=== PATIENT | male | born 1935 | race Caucasian/White ===

== ENCOUNTER 2016-12-09 09:16 | Inpatient (IN) | payer MEDICAID, OTHER ==
[~2016-12-09] VITALS: Ht 193 cm; Wt 95.0 kg
[2016-12-09] MEDS ORDERED: SODIUM CHLORIDE 0.9% 500 ML IVB ONE (10:53)
[2016-12-09 11:51] LABS: Basophils # (auto) 0 uL; Eosinophils # (auto) 0 uL; Eosinophils % (auto) 0.3 % (0.0-7.0); Hematocrit 48.8 % (41.0-53.0); Hemoglobin 16.2 g/dL (13.5-17.5); Lymphocytes % (auto) 11.9 % (10.0-50.0); Mean Corpuscular Hemoglobin 30.6 pg (28.0-32.0); Mean Corpuscular Hgb Conc. 33.2 g/dL (32.0-36.0); Mean Corpuscular Volume 92.3 fL (80.0-100.0); Mean Platelet Volume 11.6 fL (7.4-10.4); Monocytes # (auto) 0.8 uL; Neutrophils # (auto) 6.6 uL; Neutrophils % (auto) 78.8 % (37.0-80.0); Platelet Count (auto) 109 10^3/uL (140-450); Red Cell Distribution Width 14.1 % (11.6-16.0); White Blood Cell 8.4 10^3/uL (4.4-10.8)
[2016-12-09 12:07] LABS: Partial Thromboplastin Time 29.6 sec (22.64-33.71)
[2016-12-09 12:09] LABS: Albumin 3.6 g/dL (3.4-5.0); BUN/Creatinine Ratio 24.8; Bilirubin, Total 1.5 mg/dL (0.2-1.0); Calcium 8.9 mg/dL (8.5-10.1); Magnesium 2.5 mg/dL (1.6-2.6); Potassium 3.6 mmol/L (3.5-5.1); Total Protein 6.4 g/dL (6.4-8.2)
[2016-12-09 12:26] LABS: INR 1.51 (0.9-1.15); Prothrombin Time 16.3 sec (9.37-12.3)
[2016-12-09] MEDS ORDERED: VANCOMYCIN PER PHARMACY 0 MG IV SCH (13:45)
[2016-12-09] MEDS ORDERED: cefTRIAXone 1GM/50ML D5W 50 ML IV ONE (13:45)
[2016-12-09] MEDS ORDERED: TEMAZEPAM 15 MG CAP PO PRN (14:00)
[2016-12-09] MEDS ORDERED: NITROGLYCERIN 0.4 MG SL TAB SL PRN (14:00)
[2016-12-09] MEDS ORDERED: ACETAMINOPHEN 325 MG TAB PO PRN (14:00)
[2016-12-09] MEDS ORDERED: MORPHINE SULF INJ 2 MG/ML SYRINGE 1ML IV PRN (14:00)
[2016-12-09] MEDS ORDERED: HYDROcodone-ACET 5/325MG TAB PO PRN (14:00)
[2016-12-09] MEDS ORDERED: ONDANSETRON HCL 4 MG/2 ML VIAL IV PRN (14:00)
[2016-12-09] MEDS ORDERED: ALENDRONATE SODIUM 10 MG TAB PO SCH (14:08)
[2016-12-09] MEDS: SODIUM CHLORIDE 0.9% 1,000 ML IV SCH (14:15)
[2016-12-09] MEDS ORDERED: CHOLECALCIFEROL (VITD3) 1,000 UNIT TAB PO ONE (14:30)
[2016-12-09] MEDS ORDERED: HCTZ 25 MG TAB PO ONE (14:30)
[2016-12-09] MEDS ORDERED: FAMOTIDINE 20 MG TAB PO ONE (14:30)
[2016-12-09] MEDS ORDERED: METOPROLOL TARTRATE 25 MG TAB PO ONE (14:30)
[2016-12-09] MEDS ORDERED: MEMANTINE HCL 5 MG TAB PO ONE (14:30)
[2016-12-09] MEDS ORDERED: MULTIPLE VITAMIN TAB PO ONE (14:30)
[2016-12-09] MEDS ORDERED: LISINOPRIL 20 MG TAB PO ONE (14:30)
[2016-12-09] MEDS: VANCOMYCIN 1,250 MG in D5W 5% 250 ML IV SCH (15:00)
[2016-12-09 15:18] LABS: Urine Bilirubin Negative (Negative); Urine Blood TRACE /uL (Negative); Urine Color Yellow (Yellow); Urine Glucose Normal (Normal); Urine Mucus FEW (None Seen); Urine Nitrite Negative (Negative); Urine RBC 6 /hpf (0 - 3); Urine Urobilinogen Normal (Negative)
[2016-12-09 16:20] LABS: Urine Ketone 1+ (Negative)
[2016-12-09 16:32] LABS: Lactic Acid w/Reflex 2.3 mmol/L (0.4-2.0)
[2016-12-09 17:00] VITALS: BP 154/100
[2016-12-09] MEDS ORDERED: WARFARIN SODIUM 2.5 MG TAB PO ONE (17:00)
[2016-12-09 17:03] LABS: REFLEX LACTIC ACID YES OR NO YES
[2016-12-09] MEDS ORDERED: METO25TA5 PO (17:11)
[2016-12-09] MEDS ORDERED: LISI-706 PO ×2 (17:11)
[2016-12-09] MEDS ORDERED: ATOR10TA52 PO (17:11)
[2016-12-09] MEDS ORDERED: WARF2.5T PO ×2 (17:11)
[2016-12-09] MEDS ORDERED: ALEN70SO OR (17:11)
[2016-12-09] MEDS ORDERED: CHOL200021 PO (17:11)
[2016-12-09] MEDS ORDERED: MEMA10SO PO (17:11)
[2016-12-09] MEDS: CALCIUM W/VIT D (600MG/400IU) TAB PO SCH (17:41)
[2016-12-09] MEDS ORDERED: cloNIDine HCL 0.1 MG TAB PO PRN (17:45)
[2016-12-09] MEDS ORDERED: PNEUMOCOCCAL VACC POLYS 25 MCG/0.5 ML VIAL IM ONE (18:45)
[2016-12-09 22:00] VITALS: BP 148/81
[2016-12-09] MEDS: ATORVASTATIN 20 MG TAB PO SCH (22:19)
[2016-12-09] MEDS: FAMOTIDINE 20 MG TAB PO SCH (22:20)
[2016-12-09] MEDS: METOPROLOL TARTRATE 25 MG TAB PO SCH (22:20)
[2016-12-10] MEDS: VANCOMYCIN 1,250 MG in D5W 5% 250 ML IV SCH (02:55)
[2016-12-10 05:30] VITALS: BP 139/82
[2016-12-10] MEDS: SODIUM CHLORIDE 0.9% 1,000 ML IV SCH ×2 (06:04→23:07)
[2016-12-10 06:41] LABS: Basophils # (auto) 0 uL; Basophils % (auto) 0.3 % (0.0-2.0); Eosinophils # (auto) 0 uL; Eosinophils % (auto) 0.3 % (0.0-7.0); Hematocrit 45.7 % (41.0-53.0); Hemoglobin 15.1 g/dL (13.5-17.5); Lymphocytes # (auto) 0.9 uL; Lymphocytes % (auto) 9.4 % (10.0-50.0); Mean Corpuscular Hemoglobin 30.1 pg (28.0-32.0); Mean Corpuscular Volume 91.4 fL (80.0-100.0); Mean Platelet Volume 11.4 fL (7.4-10.4); Monocytes # (auto) 0.8 uL; Neutrophils # (auto) 7.4 uL; Platelet Count (auto) 112 10^3/uL (140-450); White Blood Cell 9.1 10^3/uL (4.4-10.8)
[2016-12-10 06:52] LABS: INR 1.51 (0.9-1.15); Partial Thromboplastin Time 34.4 sec (22.64-33.71); Prothrombin Time 16.3 sec (9.37-12.3)
[2016-12-10 06:58] LABS: Calcium 8.4 mg/dL (8.5-10.1); Potassium 3.2 mmol/L (3.5-5.1)
[2016-12-10 07:03] LABS: Albumin 3.2 g/dL (3.4-5.0); BUN/Creatinine Ratio 21.8; Bilirubin, Total 1.5 mg/dL (0.2-1.0); Total Protein 5.9 g/dL (6.4-8.2)
[2016-12-10] MEDS: CALCIUM W/VIT D (600MG/400IU) TAB PO SCH ×2 (07:55→18:32)
[2016-12-10] MEDS: MORPHINE SULF INJ 2 MG/ML SYRINGE 1ML IV PRN (08:11)
[2016-12-10 09:00] VITALS: BP 100/62
[2016-12-10] MEDS: cefTRIAXone 1GM/50ML D5W 50 ML IV SCH (09:31)
[2016-12-10] MEDS: FAMOTIDINE 20 MG TAB PO SCH ×2 (09:35→21:55)
[2016-12-10] MEDS: MULTIPLE VITAMIN TAB PO SCH (09:36)
[2016-12-10] MEDS: MEMANTINE HCL 5 MG TAB PO SCH (09:38)
[2016-12-10] MEDS: CHOLECALCIFEROL (VITD3) 1,000 UNIT TAB PO SCH (09:38)
[2016-12-10] MEDS: LISINOPRIL 20 MG TAB PO SCH (09:39)
[2016-12-10] MEDS: METOPROLOL TARTRATE 25 MG TAB PO SCH ×2 (09:40→21:55)
[2016-12-10] MEDS ORDERED: HCTZ 25 MG TAB PO SCH (10:00)
[2016-12-10 13:00] VITALS: BP 110/64
[2016-12-10] MEDS ORDERED: POTASSIUM CHL 20 Meq TABLET PO ONE (15:30)
[2016-12-10] MEDS ORDERED: WARFARIN SODIUM 10 MG TAB PO ONE (17:00)
[2016-12-10] MEDS: ATORVASTATIN 20 MG TAB PO SCH (21:55)
[2016-12-10 22:00] VITALS: BP 119/69
[2016-12-11] MEDS: MORPHINE SULF INJ 2 MG/ML SYRINGE 1ML IV PRN ×2 (01:20→14:48)
[2016-12-11 01:49] LABS: Basophils # (auto) 0.1 uL; Basophils % (auto) 0.6 % (0.0-2.0); Eosinophils # (auto) 0.1 uL; Eosinophils % (auto) 0.9 % (0.0-7.0); Hematocrit 45.6 % (41.0-53.0); Hemoglobin 15.1 g/dL (13.5-17.5); Lymphocytes # (auto) 1.2 uL; Mean Corpuscular Hemoglobin 29.7 pg (28.0-32.0); Mean Corpuscular Volume 89.8 fL (80.0-100.0); Mean Platelet Volume 10.7 fL (7.4-10.4); Monocytes # (auto) 0.9 uL; Monocytes % (auto) 10.8 % (0.0-12.0); Neutrophils # (auto) 6.3 uL; Neutrophils % (auto) 73.7 % (37.0-80.0); Platelet Count (auto) 101 10^3/uL (140-450); Red Cell Distribution Width 12.7 % (11.6-16.0); White Blood Cell 8.6 10^3/uL (4.4-10.8)
[2016-12-11 02:08] LABS: Partial Thromboplastin Time 36.5 sec (22.64-33.71)
[2016-12-11 02:09] LABS: INR 1.74 (0.9-1.15); Prothrombin Time 18.8 sec (9.37-12.3)
[2016-12-11 03:02] LABS: BUN/Creatinine Ratio 22.3; Calcium 8.3 mg/dL (8.5-10.1); Magnesium 2.2 mg/dL (1.6-2.6); Potassium 3.7 mmol/L (3.5-5.1)
[2016-12-11 05:30] VITALS: BP 123/67
[2016-12-11] MEDS ORDERED: ALENDRONATE SODIUM 10 MG TAB PO SCH (06:00)
[2016-12-11 08:15] VITALS: BP 145/88
[2016-12-11] MEDS: cefTRIAXone 1GM/50ML D5W 50 ML IV SCH (09:56)
[2016-12-11] MEDS: LISINOPRIL 20 MG TAB PO SCH (09:57)
[2016-12-11] MEDS: CHOLECALCIFEROL (VITD3) 1,000 UNIT TAB PO SCH (09:57)
[2016-12-11] MEDS: FAMOTIDINE 20 MG TAB PO SCH ×2 (09:57→21:49)
[2016-12-11] MEDS: MULTIPLE VITAMIN TAB PO SCH (09:57)
[2016-12-11] MEDS: METOPROLOL TARTRATE 25 MG TAB PO SCH ×2 (09:58→21:49)
[2016-12-11] MEDS: MEMANTINE HCL 5 MG TAB PO SCH (09:58)
[2016-12-11] MEDS: CALCIUM W/VIT D (600MG/400IU) TAB PO SCH ×2 (10:02→17:33)
[2016-12-11 12:39] VITALS: BP 128/74
[2016-12-11] MEDS: SODIUM CHLORIDE 0.9% 1,000 ML IV SCH (16:04)
[2016-12-11] MEDS ORDERED: WARFARIN SODIUM 10 MG TAB PO ONE (17:00)
[2016-12-11 17:16] VITALS: BP 157/98
[2016-12-11] MEDS: ATORVASTATIN 20 MG TAB PO SCH (21:48)
[2016-12-11 21:56] VITALS: BP 135/77
[2016-12-12 05:02] VITALS: BP 134/75
[2016-12-12 06:16] LABS: Partial Thromboplastin Time 40.5 sec (22.64-33.71)
[2016-12-12 06:18] LABS: INR 2.44 (0.9-1.15); Prothrombin Time 26.3 sec (9.37-12.3)
[2016-12-12] MEDS: CALCIUM W/VIT D (600MG/400IU) TAB PO SCH ×2 (08:17→09:57)
[2016-12-12 09:00] VITALS: BP 139/85
[2016-12-12] MEDS: MULTIPLE VITAMIN TAB PO SCH (09:57)
[2016-12-12] MEDS: CHOLECALCIFEROL (VITD3) 1,000 UNIT TAB PO SCH (09:57)
[2016-12-12] MEDS: METOPROLOL TARTRATE 25 MG TAB PO SCH ×2 (09:58→21:38)
[2016-12-12] MEDS: LISINOPRIL 20 MG TAB PO SCH (09:58)
[2016-12-12] MEDS: FAMOTIDINE 20 MG TAB PO SCH ×2 (09:59→21:38)
[2016-12-12] MEDS: MEMANTINE HCL 5 MG TAB PO SCH (09:59)
[2016-12-12] MEDS: SODIUM CHLORIDE 0.9% 1,000 ML IV SCH (11:31)
[2016-12-12 13:00] VITALS: BP 117/69
[2016-12-12 17:00] VITALS: BP 139/91
[2016-12-12] MEDS ORDERED: WARFARIN SODIUM 2.5 MG TAB PO ONE (17:00)
[2016-12-12 21:38] VITALS: BP 128/76
[2016-12-12] MEDS: ATORVASTATIN 20 MG TAB PO SCH (21:39)
[2016-12-13 05:00] VITALS: BP 146/87
[2016-12-13 06:23] LABS: Partial Thromboplastin Time 43.2 sec (22.64-33.71)
[2016-12-13 06:31] LABS: INR 2.23 (0.9-1.15); Prothrombin Time 24.1 sec (9.37-12.3)
[2016-12-13 07:52] VITALS: BP 124/78
[2016-12-13 09:00] VITALS: BP 124/78
[2016-12-13] MEDS: CALCIUM W/VIT D (600MG/400IU) TAB PO SCH (11:35)
[2016-12-13] MEDS: METOPROLOL TARTRATE 25 MG TAB PO SCH (11:35)
[2016-12-13] MEDS: MEMANTINE HCL 5 MG TAB PO SCH (11:35)
[2016-12-13] MEDS: MULTIPLE VITAMIN TAB PO SCH (11:35)
[2016-12-13] MEDS: CHOLECALCIFEROL (VITD3) 1,000 UNIT TAB PO SCH (11:35)
[2016-12-13] MEDS: FAMOTIDINE 20 MG TAB PO SCH (11:35)
[2016-12-13] MEDS: LISINOPRIL 20 MG TAB PO SCH (11:36)
[2016-12-13 13:00] VITALS: BP 123/81
[2016-12-13 13:26] VITALS: BP 123/81
[2016-12-13] MEDS ORDERED: WARFARIN SODIUM 10 MG TAB PO ONE (17:00)
== END 2016-12-13 16:23 | DRG 56 ==
LOC: ER 09:22 → TELE 09:23 → TELE-WESTW 16:54
PROVIDERS: ADMIT Internal Medicine; ATTEND Internal Medicine
DX: G30.9 Alzheimer's disease, unspecified (principal); G93.41 Metabolic encephalopathy; E87.0 Hyperosmolality and hypernatremia; I48.92 Unspecified atrial flutter; D68.69 Other thrombophilia; I12.9 Hypertensive chronic kidney disease with stage 1 through stage 4 chronic kidney disease, or unspecified chronic kidney disease; N18.2 Chronic kidney disease, stage 2 (mild); I48.91 Unspecified atrial fibrillation; E78.5 Hyperlipidemia, unspecified; D64.9 Anemia, unspecified; E87.6 Hypokalemia; F02.80 Dementia in other diseases classified elsewhere, unspecified severity, without behavioral disturbance, psychotic disturbance, mood disturbance, and anxiety; Z86.73 Personal history of transient ischemic attack (TIA), and cerebral infarction without residual deficits; Z82.3 Family history of stroke; Z23 Encounter for immunization
CPT/HCPCS: 36415; 51702; 70450; 71010; 72125; 73562; 74176; 80048; 80053; 80061; 80202; 81001; 82607; 83605; 83735; 84443; 84484; 85025; 85610; 85730; 87040; 87086; 93005; 93306; 93886; 95819; 96361; 96365; J0696; J7060

== ENCOUNTER 2017-08-24 12:28 | Observation (INO) | payer OTHER ==
[~2017-08-24] VITALS: Ht 193 cm; Wt 99.8 kg
[~2017-08-24 12:28] MED LIST: ALEN70SO OR; ATOR10TA52 PO; CHOL200021 PO; LISI-706 PO; MEMA10SO PO; METO25TA5 PO; WARF2.5T PO
[2017-08-24 13:33] LABS: Basophils # (auto) 0 uL; Basophils % (auto) 0.3 % (0.0-2.0); Eosinophils # (auto) 0 uL; Eosinophils % (auto) 0.3 % (0.0-7.0); Hematocrit 47.1 % (41.0-53.0); Hemoglobin 15.7 g/dL (13.5-17.5); Lymphocytes # (auto) 0.6 uL; Lymphocytes % (auto) 19.2 % (10.0-50.0); Mean Corpuscular Hemoglobin 30.5 pg (28.0-32.0); Mean Corpuscular Hgb Conc. 33.4 g/dL (32.0-36.0); Mean Corpuscular Volume 91.2 fL (80.0-100.0); Monocytes # (auto) 0.5 uL; Monocytes % (auto) 16.7 % (0.0-12.0); Neutrophils # (auto) 1.8 uL; Neutrophils % (auto) 63.5 % (37.0-80.0); Nucleated Red Blood Cells % 0.2 %; Platelet Count (auto) 84 10^3/uL (140-450); Red Blood Cells 5.16 10^6/uL (4.5-5.90); Red Cell Distribution Width 15.2 % (11.8-14.3); White Blood Cell 2.9 10^3/uL (4.4-10.8)
[2017-08-24 13:45] LABS: INR 2.13 (0.9-1.15); Partial Thromboplastin Time 41.3 sec (22.64-33.71); Prothrombin Time 23.4 sec (9.37-12.3)
[2017-08-24 14:00] LABS: Alanine Aminotransferase 21 U/L (16-61); Albumin 3.8 g/dL (3.4-5.0); Alkaline Phosphatase 103 U/L (45-117); Anion Gap 6 (5-15); Aspartate Aminotransferase 19 U/L (15-37); BUN/Creatinine Ratio 17.2; Bilirubin, Total 0.9 mg/dL (0.2-1.0); Blood Urea Nitrogen 17 mg/dL (7-18); Calcium 8.6 mg/dL (8.5-10.1); Carbon Dioxide 29 mmol/L (21-32); Chloride 104 mmol/L (98-107); GFR African American 93 mL/min; GFR Non-African American 77 mL/min; Glucose 94 mg/dL (74-106); Potassium 4.2 mmol/L (3.5-5.1); Sodium 139 mmol/L (136-145)
[2017-08-24 16:38] LABS: Urine Bacteria FEW /hpf (None Seen); Urine Blood TRACE /uL (Negative); Urine Mucus FEW (None Seen); Urine WBC 1 /hpf (0 - 3)
[2017-08-24] MEDS ORDERED: SODIUM CHLORIDE 0.9% 1,000 ML IVB ONE (17:51)
[2017-08-24] MEDS ORDERED: cloNIDine HCL 0.1 MG TAB PO ONE (22:45)
[2017-08-25 03:27] VITALS: BP 127/86
== END 2017-08-25 03:53 | disposition home or self-care (01) | DRG 947 ==
LOC: EDUNIT# 12:28 → EDBD 12:28 → ER 12:37 → OVERFLOW 17:52 → ER 08-25 03:53
PROVIDERS: ADMIT Family Medicine; ATTEND Family Medicine
DX: R53.1 Weakness (principal); I63.9 Cerebral infarction, unspecified; D68.9 Coagulation defect, unspecified; D69.6 Thrombocytopenia, unspecified; G81.94 Hemiplegia, unspecified affecting left nondominant side; G30.9 Alzheimer's disease, unspecified; F02.80 Dementia in other diseases classified elsewhere, unspecified severity, without behavioral disturbance, psychotic disturbance, mood disturbance, and anxiety; R62.7 Adult failure to thrive; E78.5 Hyperlipidemia, unspecified; I10 Essential (primary) hypertension; I48.91 Unspecified atrial fibrillation; Z86.73 Personal history of transient ischemic attack (TIA), and cerebral infarction without residual deficits; Z87.440 Personal history of urinary (tract) infections
CPT/HCPCS: 36415; 70450; 80053; 81001; 82962; 83605; 83735; 84484; 85025; 85610; 85730; 87040; 87077; 87186; 93005; 96360; 99285; G0378; 71010